=== PATIENT | female | born 1965 | race Caucasian/White ===

== ENCOUNTER 2017-07-31 09:34 | Inpatient (IN) | payer MEDICAID, OTHER ==
[~2017-07-31] VITALS: Ht 160 cm; Wt 71.5 kg
[2017-07-31] MEDS ORDERED: SODIUM CHLORIDE 0.9% 1,000 ML IV ONE (11:04)
[2017-07-31] MEDS ORDERED: SODIUM CHLORIDE FLUSH 10ML SYR IVF ONE ×2 (11:30→12:00)
[2017-07-31] MEDS ORDERED: MORPHINE SULFATE 4 MG/ML, 1ML IVPush PRN (11:30)
[2017-07-31] MEDS ORDERED: ONDANSETRON 2MG/ML, 2ML IVPush ONE (11:30)
[2017-07-31] MEDS ORDERED: SODIUM CHLORIDE 0.9% 1,000ML IVBOLUS ONE (12:00)
[2017-07-31 12:42] LABS: BASOPHILS # (AUTO) 0.04 x10^3/uL (0-0.1); BASOPHILS % (AUTO) 0 % (0-1); EOSINOPHILS # (AUTO) 0.02 x10^3/uL (0-0.4); EOSINOPHILS % (AUTO) 0 % (1-7); LYMPHOCYTES # (AUTO) 1.32 x10^3/uL (1-3.4); LYMPHOCYTES % (AUTO) 12 % (22-44); MD NO; MEAN CORPUSCULAR HEMOGLOBIN 30.7 pg (27.0-34.8); MEAN CORPUSCULAR HGB CONC 34.1 g/dL (32.4-35.8); MEAN PLATELET VOLUME 8.4 fL (7.4-10.4); MONOCYTES # (AUTO) 0.59 x10^3/uL (0.2-0.8); MONOCYTES % (AUTO) 5 % (2-9); NEUTROPHILS # (AUTO) 9.14 x10^3/uL (1.8-6.8); NEUTROPHILS % (AUTO) 82 % (42-75); PLATELET COUNT 368 x10^3/uL (130-400); RED BLOOD COUNT 4.54 x10^6/uL (3.82-5.3)
[2017-07-31] MEDS ORDERED: MORPHINE SULFATE 4 MG/ML, 1ML ONE (12:48)
[2017-07-31] MEDS ORDERED: ONDANSETRON 2MG/ML, 2ML ONE ×2 (12:48→15:29)
[2017-07-31 12:51] LABS: INTERNATIONAL NORMALIZED RATIO 0.94 (0.93-1.1); PROTHROMBIN TIME 9.7 Seconds (9.6-11.5)
[2017-07-31 12:53] LABS: ALBUMIN 3.2 g/dL (3.4-5.0); ANION GAP 12 mmol/L (5-15); CALCIUM 8.7 mg/dL (8.5-10.1); CHLORIDE 98 mmol/L (98-107)
[2017-07-31 12:56] LABS: ALANINE AMINOTRANSFERASE 43 U/L (12-78); ALKALINE PHOSPHATASE 375 U/L (45-117); BILIRUBIN,TOTAL 1.5 mg/dL (0.2-1.0); CREATININE 1.43 mg/dL (0.55-1.02); TOTAL PROTEIN 7.2 g/dL (6.4-8.2)
[2017-07-31] MEDS ORDERED: FENTANYL PF 100 MCG/2ML ONE ×3 (15:07→17:22)
[2017-07-31] MEDS ORDERED: MIDAZOLAM 1 MG/ML, 2ML ONE (15:07)
[2017-07-31 15:10] LABS: MICROSCOPIC NOT IND
[2017-07-31 15:14] LABS: CULTURE INDICATED? NO
[2017-07-31] MEDS ORDERED: DEXAMETHASONE 4 MG/ML, 1ML ONE (15:29)
[2017-07-31] MEDS ORDERED: SUCCINYLCHOLINE 20 MG/ML, 10ML ONE (15:29)
[2017-07-31] MEDS ORDERED: PROPOFOL 10 MG/ML, 20ML ONE (15:29)
[2017-07-31] MEDS ORDERED: ROCURONIUM 10 MG/ML,10ML ONE (15:29)
[2017-07-31] MEDS ORDERED: ONDANSETRON ODT 4 MG PO PRN (15:30)
[2017-07-31] MEDS ORDERED: ONDANSETRON 2MG/ML, 2ML IVPush PRN (15:30)
[2017-07-31] MEDS ORDERED: KETAMINE 10 MG/ML, 20ML ONE (16:05)
[2017-07-31] MEDS ORDERED: OXYcodone 5 MG/5 ML ORAL.SOL UDC PO PRN (17:00)
[2017-07-31] MEDS ORDERED: DIAZEPAM 5 MG/ML, 2ML IVPush PRN (17:00)
[2017-07-31] MEDS ORDERED: ALBUTEROL SULFATE 2.5 MG/3 ML NPPB PRN (17:00)
[2017-07-31] MEDS ORDERED: ACETAMINOPHEN 325 MG TABLET PO PRN (17:00)
[2017-07-31] MEDS ORDERED: PROMETHAZINE 25 MG/ML, 1ML IV PRN (17:00)
[2017-07-31] MEDS ORDERED: HYDROmorphone 1 MG/ML, 1ML IV PRN (17:00)
[2017-07-31] MEDS ORDERED: ACETAMINOPHEN 650 MG/20.3 ML UDC ONE (17:22)
[2017-07-31] MEDS ORDERED: OXYcodone 5 MG/5 ML ORAL.SOL UDC ONE (17:23)
[2017-07-31] MEDS: FENTANYL PF 100 MCG/2ML IV PRN ×3 (17:31→18:13)
[2017-07-31] MEDS ORDERED: LABETALOL 5MG/ML, 20ML IV PRN (18:00)
[2017-07-31] MEDS ORDERED: hydrALAzine 20 MG/ML, 1ML IV PRN (18:00)
[2017-07-31 18:41] VITALS: BP 120/82
[2017-07-31 19:26] LABS: ANION GAP 9 mmol/L (5-15); CHLORIDE 103 mmol/L (98-107)
[2017-07-31] MEDS ORDERED: HYDROmorphone 1 MG/ML, 1ML IM PRN (19:30)
[2017-07-31 20:18] VITALS: BP 130/83
[2017-07-31] MEDS: SODIUM CHLORIDE 0.9% 1,000 ML IV SCH ×2 (20:55→23:49)
[2017-07-31] MEDS ORDERED: ZOLPIDEM 5MG TABLET PO PRN (21:00)
[2017-07-31] MEDS: POTASSIUM CHLORIDE 20 MEQ in D5%-0.45% NACL 1,000 ML IV SCH (21:11)
[2017-07-31] MEDS: SODIUM CHLORIDE FLUSH 10ML SYR IVF SCH (21:11)
[2017-07-31] MEDS: NICOTINE 21 MG/24 HR PATCH.TD24 TD SCH (21:21)
[2017-07-31 23:36] VITALS: BP 116/72
[2017-07-31] MEDS: CEFAZOLIN PMX 2GM/100ML 100 ML IVPB SCH (23:51)
[2017-08-01 02:41] VITALS: BP 108/65
[2017-08-01 04:57] LABS: BASOPHILS % (AUTO) 0 % (0-1); EOSINOPHILS % (AUTO) 0 % (1-7); LYMPHOCYTES # (AUTO) 0.54 x10^3/uL (1-3.4); LYMPHOCYTES % (AUTO) 8 % (22-44); MD NO; MEAN CORPUSCULAR HGB CONC 34.6 g/dL (32.4-35.8); MEAN CORPUSCULAR VOLUME 89.7 fL (80-100); MEAN PLATELET VOLUME 8.1 fL (7.4-10.4); MONOCYTES # (AUTO) 0.31 x10^3/uL (0.2-0.8); MONOCYTES % (AUTO) 4 % (2-9); NEUTROPHILS # (AUTO) 6.32 x10^3/uL (1.8-6.8); NEUTROPHILS % (AUTO) 88 % (42-75); PLATELET COUNT 323 x10^3/uL (130-400); RED BLOOD COUNT 3.61 x10^6/uL (3.82-5.3); RED CELL DISTRIBUTION WIDTH 13.8 % (9.6-15.2)
[2017-08-01 05:03] LABS: ALBUMIN 2.4 g/dL (3.4-5.0); ANION GAP 6 mmol/L (5-15); CALCIUM 7.7 mg/dL (8.5-10.1); CHLORIDE 105 mmol/L (98-107)
[2017-08-01 05:15] LABS: ALANINE AMINOTRANSFERASE 30 U/L (12-78); ALKALINE PHOSPHATASE 274 U/L (45-117); BILIRUBIN,TOTAL 0.7 mg/dL (0.2-1.0); CHOL/HDL RATIO 3.2; CHOLESTEROL, TOTAL 114 mg/dL (140-239); CREATININE 1.03 mg/dL (0.55-1.02); HDL CHOL % 32 % (28-40); HDL CHOLESTEROL (DIRECT) 36 mg/dL (40-60); LDL CHOLESTEROL,CALCULATED 53 mg/dL (54-169); LDL/HDL RATIO 1.5 (0.5-3.0); THYROID STIMULATING HORMONE 0.407 mIU/L (0.358-3.740); TOTAL PROTEIN 5.9 g/dL (6.4-8.2); TRIGLYCERIDES 126 mg/dL (50-200); VLDL CHOLESTEROL 25 mg/dL (0-25)
[2017-08-01 06:37] VITALS: BP 117/77
[2017-08-01] MEDS: CEFAZOLIN PMX 2GM/100ML 100 ML IVPB SCH ×2 (08:20→16:12)
[2017-08-01] MEDS: SODIUM CHLORIDE FLUSH 10ML SYR IVF SCH ×2 (08:20→21:10)
[2017-08-01] MEDS: POTASSIUM CHLORIDE 20 MEQ in D5%-0.45% NACL 1,000 ML IV SCH ×2 (08:59→20:24)
[2017-08-01] MEDS ORDERED: ENOXAPARIN 30 MG/0.3 ML SQ ONE (09:00)
[2017-08-01] MEDS ORDERED: GADOBUTROL 7.5 MMOL/7.5 ML PFS ONE (10:25)
[2017-08-01] MEDS ORDERED: OMNIPAQUE 350 MG/ML, 100ML BOTTLE ONE (10:55)
[2017-08-01 12:58] VITALS: BP 117/66
[2017-08-01] MEDS: HYDROcodone/APAP 10/325 MG TABLET PO PRN ×2 (13:51→21:09)
[2017-08-01 19:05] VITALS: BP 111/72
[2017-08-01] MEDS: NICOTINE 21 MG/24 HR PATCH.TD24 TD SCH (21:10)
[2017-08-02 01:15] VITALS: BP 100/63
[2017-08-02] MEDS: OXYcodone 5 MG/5 ML ORAL.SOL UDC PO PRN ×4 (06:55→22:21)
[2017-08-02 07:19] VITALS: BP 119/76
[2017-08-02] MEDS: SODIUM CHLORIDE FLUSH 10ML SYR IVF SCH ×2 (08:49→20:56)
[2017-08-02] MEDS: ENOXAPARIN 40 MG/0.4 ML SQ SCH (08:49)
[2017-08-02] MEDS: POTASSIUM CHLORIDE 20 MEQ in D5%-0.45% NACL 1,000 ML IV SCH (08:59)
[2017-08-02 13:57] VITALS: BP 128/80
[2017-08-02 18:55] VITALS: BP 135/89
[2017-08-02] MEDS: NICOTINE 21 MG/24 HR PATCH.TD24 TD SCH (20:56)
[2017-08-03 01:20] VITALS: BP 105/71
[2017-08-03] MEDS: OXYcodone 5 MG/5 ML ORAL.SOL UDC PO PRN ×3 (03:37→13:09)
[2017-08-03 05:01] LABS: ANION GAP 8 mmol/L (5-15); CALCIUM 8.1 mg/dL (8.5-10.1); CHLORIDE 102 mmol/L (98-107)
[2017-08-03 05:02] LABS: CREATININE 0.67 mg/dL (0.55-1.02)
[2017-08-03 05:19] LABS: BASOPHILS # (AUTO) 0.03 x10^3/uL (0-0.1); BASOPHILS % (AUTO) 0 % (0-1); EOSINOPHILS # (AUTO) 0.05 x10^3/uL (0-0.4); EOSINOPHILS % (AUTO) 1 % (1-7); LYMPHOCYTES # (AUTO) 1.24 x10^3/uL (1-3.4); LYMPHOCYTES % (AUTO) 17 % (22-44); MD NO; MEAN CORPUSCULAR HEMOGLOBIN 31.1 pg (27.0-34.8); MEAN CORPUSCULAR HGB CONC 34.7 g/dL (32.4-35.8); MEAN CORPUSCULAR VOLUME 89.6 fL (80-100); MEAN PLATELET VOLUME 7.9 fL (7.4-10.4); MONOCYTES # (AUTO) 0.52 x10^3/uL (0.2-0.8); MONOCYTES % (AUTO) 7 % (2-9); NEUTROPHILS # (AUTO) 5.34 x10^3/uL (1.8-6.8); NEUTROPHILS % (AUTO) 74 % (42-75); PLATELET COUNT 314 x10^3/uL (130-400); RED BLOOD COUNT 3.11 x10^6/uL (3.82-5.3); RED CELL DISTRIBUTION WIDTH 13.7 % (9.6-15.2)
[2017-08-03] MEDS: POTASSIUM CHLORIDE 20 MEQ in D5%-0.45% NACL 1,000 ML IV SCH ×2 (05:37→16:44)
[2017-08-03 07:51] VITALS: BP 114/76
[2017-08-03] MEDS: ENOXAPARIN 40 MG/0.4 ML SQ SCH (07:55)
[2017-08-03] MEDS: SODIUM CHLORIDE FLUSH 10ML SYR IVF SCH ×2 (07:55→20:04)
[2017-08-03] MEDS ORDERED: TAMSULOSIN 0.4 MG CAP.ER.24H PO ONE (11:30)
[2017-08-03 13:40] VITALS: BP 112/74
[2017-08-03] MEDS ORDERED: GADOBUTROL 7.5 MMOL/7.5 ML PFS ONE (16:21)
[2017-08-03] MEDS: D5%-0.45% NACL 1,000 ML IV SCH (17:30)
[2017-08-03] MEDS ORDERED: DEXAMETHASONE 4 MG/ML, 1ML IVPush ONE (17:30)
[2017-08-03 19:01] LABS: BASOPHILS # (AUTO) 0.02 x10^3/uL (0-0.1); BASOPHILS % (AUTO) 0 % (0-1); EOSINOPHILS # (AUTO) 0.04 x10^3/uL (0-0.4); EOSINOPHILS % (AUTO) 1 % (1-7); LYMPHOCYTES # (AUTO) 0.52 x10^3/uL (1-3.4); LYMPHOCYTES % (AUTO) 8 % (22-44); MD NO; MEAN CORPUSCULAR HEMOGLOBIN 30.9 pg (27.0-34.8); MEAN CORPUSCULAR HGB CONC 34.4 g/dL (32.4-35.8); MEAN CORPUSCULAR VOLUME 89.9 fL (80-100); MEAN PLATELET VOLUME 7.6 fL (7.4-10.4); MONOCYTES # (AUTO) 0.28 x10^3/uL (0.2-0.8); MONOCYTES % (AUTO) 4 % (2-9); NEUTROPHILS # (AUTO) 5.99 x10^3/uL (1.8-6.8); NEUTROPHILS % (AUTO) 87 % (42-75); PLATELET COUNT 284 x10^3/uL (130-400); RED BLOOD COUNT 3.08 x10^6/uL (3.82-5.3); RED CELL DISTRIBUTION WIDTH 13.7 % (9.6-15.2)
[2017-08-03 19:11] VITALS: BP 117/75
[2017-08-03 19:13] LABS: ALANINE AMINOTRANSFERASE 13 U/L (12-78); ALBUMIN 2.1 g/dL (3.4-5.0); ANION GAP 8 mmol/L (5-15); CHLORIDE 99 mmol/L (98-107)
[2017-08-03 19:16] LABS: ALKALINE PHOSPHATASE 481 U/L (45-117); BILIRUBIN,TOTAL 0.8 mg/dL (0.2-1.0); CREATININE 0.65 mg/dL (0.55-1.02); TOTAL PROTEIN 5.6 g/dL (6.4-8.2)
[2017-08-03] MEDS: NICOTINE 21 MG/24 HR PATCH.TD24 TD SCH (20:04)
[2017-08-03] MEDS: DEXAMETHASONE 4 MG/ML, 1ML IVPush SCH (23:01)
[2017-08-04 00:20] VITALS: BP 126/78
[2017-08-04] MEDS: D5%-0.45% NACL 1,000 ML IV SCH ×2 (05:28→20:53)
[2017-08-04] MEDS: DEXAMETHASONE 4 MG/ML, 1ML IVPush SCH ×4 (05:28→23:19)
[2017-08-04 07:47] VITALS: BP 144/91
[2017-08-04] MEDS: ENOXAPARIN 40 MG/0.4 ML SQ SCH (08:00)
[2017-08-04 08:26] LABS: BASOPHILS # (AUTO) 0.01 x10^3/uL (0-0.1); BASOPHILS % (AUTO) 0 % (0-1); EOSINOPHILS % (AUTO) 0 % (1-7); LYMPHOCYTES # (AUTO) 0.55 x10^3/uL (1-3.4); LYMPHOCYTES % (AUTO) 6 % (22-44); MD NO; MEAN CORPUSCULAR HEMOGLOBIN 30.6 pg (27.0-34.8); MEAN CORPUSCULAR HGB CONC 34.1 g/dL (32.4-35.8); MEAN CORPUSCULAR VOLUME 89.9 fL (80-100); MEAN PLATELET VOLUME 7.6 fL (7.4-10.4); MONOCYTES # (AUTO) 0.27 x10^3/uL (0.2-0.8); MONOCYTES % (AUTO) 3 % (2-9); NEUTROPHILS # (AUTO) 7.68 x10^3/uL (1.8-6.8); NEUTROPHILS % (AUTO) 90 % (42-75); PLATELET COUNT 350 x10^3/uL (130-400)
[2017-08-04 08:33] LABS: ALBUMIN 2.2 g/dL (3.4-5.0); ANION GAP 6 mmol/L (5-15); CALCIUM 8.1 mg/dL (8.5-10.1); CHLORIDE 106 mmol/L (98-107)
[2017-08-04 08:34] LABS: CREATININE 0.56 mg/dL (0.55-1.02)
[2017-08-04] MEDS: SODIUM CHLORIDE FLUSH 10ML SYR IVF SCH ×2 (09:00→20:53)
[2017-08-04] MEDS ORDERED: GADOBUTROL 7.5 MMOL/7.5 ML PFS ONE (09:41)
[2017-08-04 13:55] VITALS: BP 131/76
[2017-08-04 19:31] VITALS: BP 136/72
[2017-08-04] MEDS: NICOTINE 21 MG/24 HR PATCH.TD24 TD SCH (20:54)
[2017-08-04] MEDS: OXYcodone 5 MG/5 ML ORAL.SOL UDC PO PRN (20:58)
[2017-08-05 00:27] VITALS: BP 116/70
[2017-08-05 04:50] LABS: BASOPHILS % (AUTO) 0 % (0-1); EOSINOPHILS % (AUTO) 0 % (1-7); LYMPHOCYTES # (AUTO) 0.64 x10^3/uL (1-3.4); LYMPHOCYTES % (AUTO) 7 % (22-44); MD NO; MEAN CORPUSCULAR HEMOGLOBIN 30.5 pg (27.0-34.8); MEAN CORPUSCULAR HGB CONC 34.1 g/dL (32.4-35.8); MEAN CORPUSCULAR VOLUME 89.4 fL (80-100); MEAN PLATELET VOLUME 7.4 fL (7.4-10.4); MONOCYTES # (AUTO) 0.36 x10^3/uL (0.2-0.8); MONOCYTES % (AUTO) 4 % (2-9); NEUTROPHILS % (AUTO) 89 % (42-75); PLATELET COUNT 399 x10^3/uL (130-400); RED BLOOD COUNT 2.92 x10^6/uL (3.82-5.3); RED CELL DISTRIBUTION WIDTH 13.7 % (9.6-15.2)
[2017-08-05 04:54] LABS: ANION GAP 7 mmol/L (5-15); CALCIUM 7.8 mg/dL (8.5-10.1); CHLORIDE 108 mmol/L (98-107)
[2017-08-05 04:57] LABS: ALANINE AMINOTRANSFERASE 23 U/L (12-78); ALKALINE PHOSPHATASE 383 U/L (45-117); BILIRUBIN,TOTAL 0.5 mg/dL (0.2-1.0); CREATININE 0.61 mg/dL (0.55-1.02); TOTAL PROTEIN 5.3 g/dL (6.4-8.2)
[2017-08-05] MEDS: DEXAMETHASONE 4 MG/ML, 1ML IVPush SCH ×4 (05:20→22:48)
[2017-08-05] MEDS: OXYcodone 5 MG/5 ML ORAL.SOL UDC PO PRN ×4 (05:24→23:43)
[2017-08-05] MEDS: ENOXAPARIN 40 MG/0.4 ML SQ SCH (08:33)
[2017-08-05] MEDS: SODIUM CHLORIDE FLUSH 10ML SYR IVF SCH ×2 (09:00→19:25)
[2017-08-05 09:21] VITALS: BP 116/75
[2017-08-05] MEDS: D5%-0.45% NACL 1,000 ML IV SCH (09:30)
[2017-08-05 14:00] VITALS: BP 120/70
[2017-08-05 19:47] VITALS: BP 136/79
[2017-08-05] MEDS: NICOTINE 21 MG/24 HR PATCH.TD24 TD SCH (20:35)
[2017-08-06] MEDS: D5%-0.45% NACL 1,000 ML IV SCH ×2 (00:22→13:50)
[2017-08-06 01:12] VITALS: BP 149/89
[2017-08-06 04:32] LABS: BASOPHILS # (AUTO) 0.01 x10^3/uL (0-0.1); BASOPHILS % (AUTO) 0 % (0-1); EOSINOPHILS % (AUTO) 0 % (1-7); LYMPHOCYTES # (AUTO) 0.77 x10^3/uL (1-3.4); LYMPHOCYTES % (AUTO) 7 % (22-44); MD NO; MEAN CORPUSCULAR HEMOGLOBIN 30.6 pg (27.0-34.8); MEAN CORPUSCULAR HGB CONC 34.1 g/dL (32.4-35.8); MEAN CORPUSCULAR VOLUME 89.9 fL (80-100); MEAN PLATELET VOLUME 7.1 fL (7.4-10.4); MONOCYTES # (AUTO) 0.48 x10^3/uL (0.2-0.8); MONOCYTES % (AUTO) 5 % (2-9); NEUTROPHILS # (AUTO) 9.28 x10^3/uL (1.8-6.8); NEUTROPHILS % (AUTO) 88 % (42-75); PLATELET COUNT 444 x10^3/uL (130-400); RED CELL DISTRIBUTION WIDTH 13.9 % (9.6-15.2)
[2017-08-06 04:39] LABS: ALBUMIN 2.1 g/dL (3.4-5.0); ANION GAP 9 mmol/L (5-15); CALCIUM 7.8 mg/dL (8.5-10.1); CHLORIDE 108 mmol/L (98-107); CREATININE 0.62 mg/dL (0.55-1.02)
[2017-08-06] MEDS: DEXAMETHASONE 4 MG/ML, 1ML IVPush SCH ×4 (05:14→23:51)
[2017-08-06] MEDS: OXYcodone 5 MG/5 ML ORAL.SOL UDC PO PRN ×2 (05:26→20:18)
[2017-08-06 07:24] VITALS: BP 148/83
[2017-08-06] MEDS: SODIUM CHLORIDE FLUSH 10ML SYR IVF SCH ×2 (10:00→20:21)
[2017-08-06] MEDS: ENOXAPARIN 40 MG/0.4 ML SQ SCH (10:00)
[2017-08-06 13:24] VITALS: BP 125/75
[2017-08-06] MEDS ORDERED: POLYETHYLENE GLYCOL 17 GM PACKET PO PRN (17:30)
[2017-08-06 19:16] VITALS: BP 150/84
[2017-08-06] MEDS: NICOTINE 21 MG/24 HR PATCH.TD24 TD SCH (20:15)
[2017-08-06] MEDS: DOCUSATE 100 MG CAPSULE PO SCH (20:22)
[2017-08-07] MEDS: OXYcodone 5 MG/5 ML ORAL.SOL UDC PO PRN ×3 (02:53→20:54)
[2017-08-07 02:56] VITALS: BP 136/74
[2017-08-07] MEDS: D5%-0.45% NACL 1,000 ML IV SCH (04:03)
[2017-08-07 04:42] LABS: BASOPHILS % (AUTO) 0 % (0-1); EOSINOPHILS % (AUTO) 0 % (1-7); LYMPHOCYTES # (AUTO) 1.02 x10^3/uL (1-3.4); LYMPHOCYTES % (AUTO) 10 % (22-44); MD NO; MEAN CORPUSCULAR HEMOGLOBIN 30.6 pg (27.0-34.8); MEAN CORPUSCULAR HGB CONC 33.8 g/dL (32.4-35.8); MEAN CORPUSCULAR VOLUME 90.6 fL (80-100); MEAN PLATELET VOLUME 7.2 fL (7.4-10.4); MONOCYTES % (AUTO) 5 % (2-9); NEUTROPHILS # (AUTO) 8.75 x10^3/uL (1.8-6.8); NEUTROPHILS % (AUTO) 85 % (42-75); PLATELET COUNT 438 x10^3/uL (130-400); RED BLOOD COUNT 3.06 x10^6/uL (3.82-5.3); RED CELL DISTRIBUTION WIDTH 13.9 % (9.6-15.2)
[2017-08-07 04:51] LABS: ANION GAP 8 mmol/L (5-15); CALCIUM 7.5 mg/dL (8.5-10.1); CHLORIDE 108 mmol/L (98-107)
[2017-08-07 04:55] LABS: ALANINE AMINOTRANSFERASE 69 U/L (12-78); ALKALINE PHOSPHATASE 334 U/L (45-117); BILIRUBIN,TOTAL 0.4 mg/dL (0.2-1.0); TOTAL PROTEIN 5.1 g/dL (6.4-8.2)
[2017-08-07] MEDS: DEXAMETHASONE 4 MG/ML, 1ML IVPush SCH ×4 (05:14→23:01)
[2017-08-07 08:20] VITALS: BP 146/91
[2017-08-07] MEDS: DOCUSATE 100 MG CAPSULE PO SCH ×2 (09:06→20:54)
[2017-08-07] MEDS: ENOXAPARIN 40 MG/0.4 ML SQ SCH (09:06)
[2017-08-07] MEDS: SODIUM CHLORIDE FLUSH 10ML SYR IVF SCH ×2 (09:09→21:00)
[2017-08-07 14:42] VITALS: BP 130/46
[2017-08-07 18:36] VITALS: BP 134/78
[2017-08-07] MEDS: NICOTINE 21 MG/24 HR PATCH.TD24 TD SCH (20:54)
[2017-08-08] MEDS: D5%-0.45% NACL 1,000 ML IV SCH ×2 (02:33→16:45)
[2017-08-08 02:38] VITALS: BP 125/70
[2017-08-08] MEDS: OXYcodone 5 MG/5 ML ORAL.SOL UDC PO PRN ×3 (03:59→16:45)
[2017-08-08 04:45] LABS: BASOPHILS # (AUTO) 0.02 x10^3/uL (0-0.1); BASOPHILS % (AUTO) 0 % (0-1); EOSINOPHILS % (AUTO) 0 % (1-7); LYMPHOCYTES # (AUTO) 1.16 x10^3/uL (1-3.4); LYMPHOCYTES % (AUTO) 10 % (22-44); MD NO; MEAN CORPUSCULAR HEMOGLOBIN 30.3 pg (27.0-34.8); MEAN CORPUSCULAR HGB CONC 33.4 g/dL (32.4-35.8); MEAN CORPUSCULAR VOLUME 90.7 fL (80-100); MEAN PLATELET VOLUME 6.9 fL (7.4-10.4); MONOCYTES # (AUTO) 0.53 x10^3/uL (0.2-0.8); MONOCYTES % (AUTO) 5 % (2-9); NEUTROPHILS # (AUTO) 9.42 x10^3/uL (1.8-6.8); NEUTROPHILS % (AUTO) 85 % (42-75); PLATELET COUNT 461 x10^3/uL (130-400); RED BLOOD COUNT 3.49 x10^6/uL (3.82-5.3); RED CELL DISTRIBUTION WIDTH 14.2 % (9.6-15.2)
[2017-08-08 04:57] LABS: ALBUMIN 2.2 g/dL (3.4-5.0); ANION GAP 9 mmol/L (5-15); CALCIUM 7.9 mg/dL (8.5-10.1); CHLORIDE 104 mmol/L (98-107); CREATININE 0.66 mg/dL (0.55-1.02)
[2017-08-08] MEDS: DEXAMETHASONE 4 MG/ML, 1ML IVPush SCH ×4 (05:19→22:37)
[2017-08-08 08:02] VITALS: BP 142/81
[2017-08-08] MEDS: ENOXAPARIN 40 MG/0.4 ML SQ SCH (08:56)
[2017-08-08] MEDS: DOCUSATE 100 MG CAPSULE PO SCH ×2 (08:56→19:26)
[2017-08-08] MEDS: SODIUM CHLORIDE FLUSH 10ML SYR IVF SCH ×2 (08:56→19:49)
[2017-08-08] MEDS ORDERED: ERGOCALCIFEROL 50,000 UNIT CAPSULE PO SCH (14:00)
[2017-08-08 14:36] VITALS: BP 144/94
[2017-08-08 18:41] VITALS: BP 134/84
[2017-08-08] MEDS: NICOTINE 21 MG/24 HR PATCH.TD24 TD SCH (19:49)
[2017-08-09] MEDS: OXYcodone 5 MG/5 ML ORAL.SOL UDC PO PRN ×3 (02:04→13:36)
[2017-08-09 04:14] VITALS: BP 138/79
[2017-08-09] MEDS ORDERED: HYDROmorphone 2 MG/ML, 1ML IM PRN (04:30)
[2017-08-09] MEDS: DEXAMETHASONE 4 MG/ML, 1ML IVPush SCH ×2 (05:06→10:05)
[2017-08-09 08:13] VITALS: BP 130/72
[2017-08-09] MEDS: SODIUM CHLORIDE FLUSH 10ML SYR IVF SCH (08:40)
[2017-08-09] MEDS: DOCUSATE 100 MG CAPSULE PO SCH (08:40)
[2017-08-09] MEDS: ENOXAPARIN 40 MG/0.4 ML SQ SCH (08:40)
[2017-08-09] MEDS: D5%-0.45% NACL 1,000 ML IV SCH (08:40)
[2017-08-09] MEDS: OMEPRAZOLE 20 MG CAPSULE.DR PO SCH ×2 (10:05→16:49)
[2017-08-09] MEDS ORDERED: TAMSULOSIN 0.4 MG CAP.ER.24H PO SCH (11:00)
[2017-08-09 13:33] VITALS: BP 107/72
[2017-08-09] MEDS ORDERED: POLY17PO5 PO (15:32)
[2017-08-09] MEDS ORDERED: ACET650S21 PO (15:32)
[2017-08-09] MEDS ORDERED: DEXA4TAB PO (15:32)
[2017-08-09] MEDS ORDERED: IBUP-1221 PO (15:32)
[2017-08-09] MEDS ORDERED: ERGO500017 PO (15:32)
[2017-08-09] MEDS ORDERED: OMEP-110 PO (15:32)
[2017-08-09] MEDS ORDERED: TAMS-11 PO (15:32)
[2017-08-09] MEDS ORDERED: DEXAMETHASONE 4 MG TABLET PO SCH (17:00)
== END 2017-08-09 17:40 | DRG 477 ==
LOC: ED 14:08 → EDIP 14:33 → 4NOR 18:48 → 3NW 08-02 13:53
PROVIDERS: ADMIT Internal Medicine; ATTEND Internal Medicine
PROC: 0QB60ZX Excision of Right Upper Femur, Open Approach, Diagnostic (ICD-10-PCS; 2017-07-31)
PROC: 0QH606Z Insertion of Intramedullary Internal Fixation Device into Right Upper Femur, Open Approach (ICD-10-PCS; principal; 2017-07-31 15:00)
DX: M84.459A Pathological fracture, hip, unspecified, initial encounter for fracture (principal); E43 Unspecified severe protein-calorie malnutrition; N17.0 Acute kidney failure with tubular necrosis; C79.51 Secondary malignant neoplasm of bone; C50.919 Malignant neoplasm of unspecified site of unspecified female breast; E87.1 Hypo-osmolality and hyponatremia; D64.9 Anemia, unspecified; D72.829 Elevated white blood cell count, unspecified; E11.9 Type 2 diabetes mellitus without complications; Y93.01 Activity, walking, marching and hiking; W10.9XXA Fall (on) (from) unspecified stairs and steps, initial encounter; F17.210 Nicotine dependence, cigarettes, uncomplicated; Z68.27 Body mass index [BMI] 27.0-27.9, adult; M40.204 Unspecified kyphosis, thoracic region; S80.219A Abrasion, unspecified knee, initial encounter; X50.1XXA Overexertion from prolonged static or awkward postures, initial encounter; Z80.3 Family history of malignant neoplasm of breast; Z85.3 Personal history of malignant neoplasm of breast; Z63.4 Disappearance and death of family member; Z87.81 Personal history of (healed) traumatic fracture
CPT/HCPCS: 36415; 51702; 70553; 71045; 71260; 72072; 72110; 72157; 72158; 74177; 76001; 80048; 80053; 80061; 81003; 82040; 82306; 83735; 84100; 84155; 84156; 84165; 84166; 84443; 85025; 85610; 85730; 88304; 88311; 88341; 88342; 88360; 93005; 93970; 96374; 96375; A9585; C1713; J1100; J1650; J2250; J2405; J2704; J3010; J3480; Q9967; 92523-GN; G0461; J0330; J0690; J7030

== ENCOUNTER → 2020-02-25 | Outpatient (CLI) | payer MEDICARE ==
[~2020-02-25] MED LIST: ACET650S21 PO; DEXA4TAB PO; ERGO500017 PO; IBUP-1221 PO; OMEP-110 PO; OMNIPAQUE 350 MG/ML, 100ML BOTTLE ONE; POLY17PO5 PO; TAMS-11 PO
== END | disposition home or self-care (01) ==
LOC: RAD 09:44
PROVIDERS: ATTEND Internal Medicine Hematology & Oncology
DX: C50.412 Malignant neoplasm of upper-outer quadrant of left female breast (principal); K76.0 Fatty (change of) liver, not elsewhere classified; J98.11 Atelectasis; M48.54XA Collapsed vertebra, not elsewhere classified, thoracic region, initial encounter for fracture; K80.20 Calculus of gallbladder without cholecystitis without obstruction; I70.0 Atherosclerosis of aorta
CPT/HCPCS: 36415; 71260; 74177; 78306; 82565; A9503; Q9967

== ENCOUNTER → 2020-06-12 | Outpatient (CLI) | payer MEDICARE ==
[~2020-06-12] MED LIST changes: -OMNIPAQUE 350 MG/ML, 100ML BOTTLE ONE
== END | disposition home or self-care (01) ==
LOC: RAD 08:18
PROVIDERS: ATTEND Internal Medicine Hematology & Oncology
DX: C50.412 Malignant neoplasm of upper-outer quadrant of left female breast (principal); M79.652 Pain in left thigh